=== PATIENT | female | born 1960 | race Caucasian/White ===

== ENCOUNTER 2021-08-14 05:33 | Day surgery (SDC) | payer MEDICAID ==
[2021-08-07 16:02] LABS: BASOPHILS # (AUTO) 0.1 X10'3 (0-0.2); BASOPHILS % (AUTO) 0.8 % (0-1); EOSINOPHILS % (AUTO) 15.5 % (0-6); LYMPHOCYTES # (AUTO) 3.7 X10'3 (1.1-4.8); LYMPHOCYTES % (AUTO) 29.4 % (21-51); MEAN CORPUSCULAR HGB CONC 32.1 g/dL (33.0-36.5); MEAN PLATELET VOLUME 8.6 FL (7.4-10.4); MONOCYTES % (AUTO) 8.2 % (2-12); NEUTROPHILS # (AUTO) 5.8 X10'3 (1.8-7.7); NEUTROPHILS % (AUTO) 46.1 % (42-75); PRE OP HEMATOCRIT 39.2 % (35.0-45.0); PRE OP HEMOGLOBIN 12.6 g/dL (12.0-16.0); PRE OP PLATELET COUNT 347 X10'3 (140-440); RED BLOOD COUNT 4.85 X10'6 (4.20-5.60); RED CELL DISTRIBUTION WIDTH 17.4 % (11.5-14.5)
[2021-08-07 16:03] LABS: PRE OP INR 1.1 INR; PRE OP PROTIME 11.2 SECONDS (9.0-12.0)
[2021-08-07 16:04] LABS: ALBUMIN 3.5 G/DL (3.4-5.0); ALKALINE PHOSPHATASE 152 IU/L (46-116); BLOOD UREA NITROGEN 10 MG/DL (7-18); BUN/CREATININE RATIO 15.9 (6.6-38.0); CALCIUM 9.6 MG/DL (8.5-10.1); CHLORIDE 108 MMOL/L (99-107); CREATININE 0.63 MG/DL (0.40-0.90); PRE OP ALT 35 U/L (30-65); PRE OP ANION GAP 11 (8-16); PRE OP AST 23 U/L (10-37); PRE OP BILIRUB, TOTAL 0.2 MG/DL (0.0-1.0); PRE OP GLUCOSE 135 MG/DL (70-104); PRE OP POTASSIUM 4.3 MMOL/L (3.4-5.1); PRE OP SODIUM 145 MMOL/L (135-145); TOTAL CARBON DIOXIDE 26.1 MMOL/L (24-32); eGFR > 90 ML/MIN
[~2021-08-14] VITALS: Ht 154.9 cm; Wt 106.1 kg
[~2021-08-14 05:33] MED LIST: ATOR20TA PO; ATRIN IH; BACL10TA2 PO; BUTA-281 PO; CETI10TA18 PO; CHOL10006 PO; CYAN25003 SL; DICL50TA8 PO; DOXY-327 PO; FAMO40TA58 PO; FLUT16SP26; GABA800T11 PO; HYDR-4353 PO; INSU100I31; INSU100I39 SQ; LEVO175T2 PO; LINA145C PO; LOSA50TA3 PO; METF500T PO; MONT10TA32 PO; MULT-1085 PO; ONDA-103 PO; PANT-47 PO; VENL150C58 PO; cefazolin/dext.iso 2gm/100ml IV ONE; famotidine 20mg tablet PO ONE; ringers solution, lacted 1,000 ML IV SCH
[2021-08-14 05:40] VITALS: BP 127/70
[2021-08-14] MEDS ORDERED: LIDOcaine 1% (10mg/ml) 2ml vial ONE (05:50)
[2021-08-14] MEDS ORDERED: BUPIVAcaine/PF 2.5mg/ml (0.25%) 10ml vial ONE (06:39)
[2021-08-14] MEDS ORDERED: fentaNYL/PF 50MCG/1 ML 2ML syringe ONE (07:21)
[2021-08-14] MEDS ORDERED: midazolam 1 mg/ML 2ml injection ONE (07:23)
[2021-08-14] MEDS ORDERED: propofol inj 20 ML IV ONE (07:30)
[2021-08-14] MEDS ORDERED: LIDOcaine 0.5% (5mg/ml) 50ml vial ONE (07:30)
[2021-08-14 07:55] VITALS: BP 149/74
[2021-08-14] MEDS ORDERED: hydrALAZINE 20mg/ml inj. IV PRN (07:55)
[2021-08-14] MEDS ORDERED: labetalol 20mg/4ml (5mg/ml) syringe IV PRN (07:55)
[2021-08-14] MEDS ORDERED: morphine 2 MG/ML inj. syringe IV PRN (07:55)
[2021-08-14] MEDS ORDERED: acetaminophen 1,000mg/100ml IV 100 ML IV PRN (07:55)
[2021-08-14] MEDS ORDERED: ringers solution, lacted 1,000 ML IV SCH (07:55)
[2021-08-14] MEDS ORDERED: ondansetron/PF 4mg/2ml inj IV PRN (07:55)
[2021-08-14] MEDS ORDERED: meperidine/PF 25mg/ml syringe IV PRN (07:55)
[2021-08-14] MEDS ORDERED: proCHLORperazine 10 MG/2 ml inj IV PRN (07:55)
[2021-08-14] MEDS ORDERED: HYDROmorphone/PF 0.2 MG/ML SYRINGE IV PRN (07:55)
--- NOTE | 2021-08-14 07:55 | NUR ---
Received from OR via , accompanied by Anesthesiologist and report given by Anesthesiolgist. PATIENT A&OX4, DENIES PAIN, V/S WNL, NEUROVASCULAR CHECKS INTACT, DRESSING TO LINA CDI, 22G LUE, BG 130.
[2021-08-14 08:05] VITALS: BP 135/72
[2021-08-14 08:15] VITALS: BP 138/77
[2021-08-14 08:25] VITALS: BP 132/72
--- NOTE | 2021-08-14 08:25 | NUR ---
PATIENT A&OX4, DENIES PAIN, V/S WNL, NEUROVASCULAR CHECKS INTACT, DRESSING TO RUE CDI, 22G LUE D/C, BG 130. I HAVE REVIEWED D/C INSTRUCTIONS WITH PATIENT AND AND THEY HAVE VERBALIZED UNDERSTANDING. PATIENT D/C HOME WITH ALL BELONGINGS AND GAVE TRANSPORT.
== END 2021-08-14 08:25 | disposition home or self-care (01) ==
LOC: PAS 05:33
PROVIDERS: ATTEND Orthopaedic Surgery Hand Surgery
DX: G56.01 Carpal tunnel syndrome, right upper limb (principal); M65.331 Trigger finger, right middle finger; M65.341 Trigger finger, right ring finger; F32.9 Major depressive disorder, single episode, unspecified; E78.00 Pure hypercholesterolemia, unspecified; E03.9 Hypothyroidism, unspecified; I10 Essential (primary) hypertension; E11.40 Type 2 diabetes mellitus with diabetic neuropathy, unspecified; K21.9 Gastro-esophageal reflux disease without esophagitis; E66.9 Obesity, unspecified; Z68.41 Body mass index [BMI] 40.0-44.9, adult; Z20.822 Contact with and (suspected) exposure to COVID-19; Z79.899 Other long term (current) drug therapy; Z79.01 Long term (current) use of anticoagulants; Z90.49 Acquired absence of other specified parts of digestive tract; Z98.890 Other specified postprocedural states; Z90.710 Acquired absence of both cervix and uterus; Z87.891 Personal history of nicotine dependence; Z85.42 Personal history of malignant neoplasm of other parts of uterus; Z91.040 Latex allergy status; Z88.8 Allergy status to other drugs, medicaments and biological substances; Z91.09 Other allergy status, other than to drugs and biological substances
CPT/HCPCS: 26055; 29848; 36415; 80053; 82948; 85025; 85610; 85730; 93005; J2001; J2250; J2704; J3010; J3490; U0003; U0005; Z7506; Z7512; A4215; A7000; J7120

== ENCOUNTER 2025-04-30 09:05 | Outpatient (CLI) | payer MEDICAID ==
[2025-04-30] VITALS (7 sets, daily range): BP systolic 118–143; BP diastolic 56–69; PULSE 64–80; RESP 18; O2SAT 96–99
[~2025-04-30] VITALS: Ht 154.9 cm; Wt 95.3 kg
[~2025-04-30 09:05] MED LIST changes: +BUTA-245 PO; -BUTA-281 PO; -CETI10TA18 PO; +CETI10TA19 PO; -DOXY-327 PO; +DOXY-460 PO; +GABA-1555 PO; -GABA800T11 PO; +LOSA-416 PO; -LOSA50TA3 PO; +MONT-40 PO; -MONT10TA32 PO; -cefazolin/dext.iso 2gm/100ml IV ONE; -famotidine 20mg tablet PO ONE; -ringers solution, lacted 1,000 ML IV SCH
[2025-04-30] MEDS ORDERED: nitroGLYCERIN 0.4mg SUBLingual tab SL PRN (10:05)
[2025-04-30] MEDS ORDERED: aminophylline 500mg/20ml vial IV PRN (10:05)
[2025-04-30] MEDS ORDERED: normal saline 1000ml 1,000 ML IV ONE (10:05)
[2025-04-30] MEDS ORDERED: aminophylline 500mg/20ml vial IV ONE (10:20)
[2025-04-30] MEDS: regadenoson 0.4mg/5ml syringe IV ONE (11:13)
--- NOTE | 2025-04-30 13:02 | RADIOLOGY REPORT ---
EXAM: NM NM IVAN SCAN HISTORY: CHEST PAIN, UNSPECIFIED/ ABNORMAL EKG/ PRE OP COMPARISON: None TECHNIQUE: REST STUDY: 7 0.3 mCi of Technetium 99m-Tetrofosmin. STRESS STUDY: 32.7 mCi of Technetium 99m-Tetrofosmin. The patient was stressed with regadenoson 0.4 m g IV. Cardiac-gated tomographic images of the heart were obtained in the short and long axis projections. I mages were obtained at rest and immediately following stress. Stress and rest images were performed o n the same day. FINDINGS: No perfusion defects are identified on the stress or rest images. Wall motion is normal. Left ventric ular ejection fraction is 71%. IMPRESSION: 1. No evidence of old myocardial infarct or stress-induced ischemia. 2. Normal wall motion and LVEF.
== END 2025-04-30 23:59 | disposition home or self-care (01) ==
LOC: NM 09:05
PROVIDERS: ATTEND Physician Assistant
DX: Z01.810 Encounter for preprocedural cardiovascular examination (principal); R07.9 Chest pain, unspecified; R94.31 Abnormal electrocardiogram [ECG] [EKG]
CPT/HCPCS: 78452; 93017; A9500; J2785; J7030; J0280